=== PATIENT | female | born 1955 | race Caucasian/White ===

== ENCOUNTER → 2020-02-04 | Outpatient (CLI) | payer MEDICARE, MEDICAID ==
--- NOTE | 2020-02-04 16:19 | RADIOLOGY REPORT (SQ) ---
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 NUMBER OF VIEWS: Two views. TECHNIQUE: AP pelvis and additional frog-leg view of the right hip. LIMITATIONS: None. FINDINGS: MINERALIZATION: Normal. RIGHT HIP: No fracture or dislocation. No worrisome bone lesions. LEFT HIP: No fracture or dislocation. No worrisome bone lesions. PUBIS AND ISCHIUM: No fracture. PELVIS: No fracture. SACRUM: No fracture or dislocation. No worrisome bone lesions. LOWER LUMBAR SPINE: No fracture or dislocation. No worrisome bone lesions. No significant disc disea se. SOFT TISSUES: No findings. OTHER: No other significant finding. IMPRESSION: NEGATIVE STUDY OF THE RIGHT HIP. NO RADIOGRAPHIC EVIDENCE OF ACUTE INJURY. TECHNICAL DOCUMENTATION: JOB ID: [id number] 2010 [employer]- All Rights Reserved Reading location - IP/workstation name: [email or web address]
--- NOTE | 2020-02-04 16:20 | RADIOLOGY REPORT (SQ) ---
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 NUMBER OF VIEWS: Five views including obliques. TECHNIQUE: AP, lateral, oblique, and sacral radiographic images acquired of the lumbar spine. LIMITATIONS: None. FINDINGS: MINERALIZATION: Normal. SEGMENTATION: Normal. No transitional anatomy. ALIGNMENT: Normal. VERTEBRAE: Maintained height. No fracture or worrisome bone lesion. DISCS: There is mild disc narrowing at L3-4 and L4-5 POSTERIOR ELEMENTS: Pedicles and facets are intact. No pars defect or posterior arch defects. HARDWARE: None in the spine. PARASPINAL SOFT TISSUES: Normal. PELVIS: Intact as visualized. No fractures or worrisome bone lesions. SI joints intact. OTHER: No other significant finding. IMPRESSION: Mild degenerative disc changes. TECHNICAL DOCUMENTATION: JOB ID: [id number] 2010 [employer]- All Rights Reserved Reading location - IP/workstation name: [email or web address]
== END ==
LOC: RAD 14:49
PROVIDERS: ATTEND Family Medicine
DX: M25.551 Pain in right hip (principal); M54.31 Sciatica, right side
CPT/HCPCS: 72110

== ENCOUNTER 2020-06-16 08:03 | Inpatient (IN) | payer MEDICARE, MEDICAID ==
--- NOTE | 2020-06-16 11:41 | ER Document Report ---
ED Psych Disorder / Suicide <PRAVIN YUN - Last Filed: 06/16/20 16:57> - Related Data Home Medications: Ativan, Losartan, Tramadol, Phentermine <ANKUR QUINTANILLA - Last Filed: 06/16/20 18:08> - General Chief Complaint: Depression Stated Complaint: ANXIOUS Time Seen by Provider: 06/16/20 11:19 Notes: Patient is a 65-year-old female who comes emergency department for chief complaint of anxiety and depression. Her from lung cancer reportedly on 06/05/2020, patient states since that time she has "not been doing well". Sister at bedside states that she called EMS for her this morning after a phone call where the patient seemed groggy and confused. She states the patient told her that she felt like she "was not breathing quite right". Patient denies suicidal ideations but states she just wants to sleep and she just wants to feel right again. Sister states she is very worried about her and she does not seem to be doing well or taking care of herself. Patient lives with a roommate. Patient has a history of anxiety and depression, treated fo rmally with Prozac and currently with Ativan as needed. Patient states she took 3 mg of Ativan this morning because she felt like her 2 mg dose that she is allowed to take was not helping. Patient denies intentional overdose. She denies anything irregular about her other medication doses. Past medical history of hypertension and current smoking with "possible COPD". Patient denies fever/chills, chest pain, vomiting, injury. (ANKUR QUINTANILLA) - Related Data Allergies/Adverse Reactions: Penicillins Allergy (Intermediate, Verified 08/21/10 11:24) Hives Past Medical History - General Information source: Patient, Relative - Social History Smoking Status: Current Every Day Smoker Chew tobacco use (# tins/day): No Drug Abuse: None Lives with: Family Family History: Reviewed & Not Pertinent - Past Medical History Cardiac Medical History: Reports: Hx Hypertension Denies: Hx Coronary Artery Disease, Hx Heart Attack Pulmonary Medical History: Reports: Hx Bronchitis - pt states due to smoking Denies: Hx Asthma, Hx COPD, Hx Pneumonia Neurological Medical History: Denies: Hx Cerebrovascular Accident, Hx Seizures Musculoskeletal Medical History: Reports Hx Arthritis - limited rom with turning head to side and tilting back Past Surgical History: Denies: Hx Pacemaker <ANKUR QUINTANILLA - Last Filed: 06/16/20 18:08> Review of Systems - Review of Systems Constitutional: See HPI EENT: No symptoms reported Cardiovascular: No symptoms reported Respiratory: See HPI Gastrointestinal: No symptoms reported Genitourinary: No symptoms reported Female Genitourinary: No symptoms reported Musculoskeletal: No symptoms reported Skin: No symptoms reported Hematologic/Lymphatic: No symptoms reported Neurological/Psychological: See HPI <JOHNNYISMAEL FUNGAN - Last Filed: 06/16/20 18:08> Physical Exam <ISMAEL QUINTANILLAAN - Last Filed: 06/16/20 18:08> - Vital signs Vitals: Temp Pulse Resp BP Pulse Ox 97.9 F 77 28 H 145/81 H 91 L 06/16/20 08:14 06/16/20 08:14 06/16/20 08:14 06/16/20 08:14 06/16/20 08:14 - Notes Notes: GENERAL: Alert, interacts well. No acute distress. HEAD: Normocephalic, atraumatic. EYES: Pupils equal, round, and reactive to light. Extraocular movements intact. ENT: Oral mucosa moist, tongue midline. Oropharynx unremarkable. Airway patent. NECK: Full range of motion. Supple. Trachea midline. No lymphadenopathy. LUNGS: Decreased breath sounds but no overt rales or rhonchi. Mild tachypnea HEART: Regular rate and rhythm. No murmur ABDOMEN: Soft, non-tender. Non-distended. EXTREMITIES: Bilateral lower extremity swelling with edema slightly worse on the left. Normal distal neurovascular exam BACK: no cervical, thoracic, lumbar midline tenderness. No saddle anesthesia, normal distal neurovascular exam. Moves all extremities in full range of motion. NEUROLOGICAL: Alert and oriented x3. Normal speech. Cranial nerves II through XII grossly intact. Strength 5/5 in all extremities. PSYCH: Patient tearful, makes poor eye contact, depressed mood SKIN: Warm, dry, normal turgor. No rashes or lesions noted. (ANKUR QUINTANILLA) Course - Laboratory Results Result Diagrams: 06/16/20 12:20 06/16/20 12:20 <PRAVIN YUN - Last Filed: 06/16/20 16:57> - Laboratory Results Result Diagrams: 06/16/20 12:20 06/16/20 12:20 Critical Laboratory Results Reviewed: No Critical Results - Radiology Results Critical Radiology Results Reviewed: No Critical Results <ANKUR QUINTANILLA - Last Filed: 06/16/20 18:08> - Re-evaluation Re-evalutation: Patient sleeping, when I aroused her she burst into tears and was noted to be consistently crying during her evaluation. Patient appears to be having a s evere grief reaction. Lungs not overtly concerning but patient does have some tachypnea, physical exam is unremarkable otherwise, oxygen saturation borderline at 91% initially she will be placed on pulse oximetry and work-up is pending for hopefully medical clearance. Chest x-ray shows pleural effusion, possible infiltrate, very notable cardiomegaly. CBC nonspecific, chemistry nonspecific with elevated LFTs. BNP is significantly elevated at greater than 12,000. Patient does not have history of CHF reportedly, is not on a diuretic. Troponin indeterminate. I discussed with patient, patient back to have a CAT scan, states that her had 4 total abnormal x-rays before someone finally did a CAT scan diagnosed cancer. She is a current smoker. Tachypnea and abnormal chest x-ray will be evaluated with a CTA. CT most consistent with pulmonary vascular congestion, no acute findings noted otherwise. Patient briefly had an episode where she became slightly diaphoretic and had notable labored breathing with respiratory distress, ordered BiPAP, given nitroglycerin and Lasix, patient then significantly improved. Patient not tolerating BiPAP, requesting just nasal cannula, she was reevaluated while using just this and was significantly improved. Discussed with patient and family, will discuss with hospitalist for admission for hypoxia, dyspnea, new onset congestive heart failure. They state understanding and agreement. Discussed with hospitalist, patient accepted full admission. 06/16/20 18:00 Psychiatry evaluated patient, recommended adding BuSpar 7.5 mg twice a day and discontinuing lorazepam, they requested that I place the order for BuSpar and this was performed. (ANKUR QUINTANILLA) - Vital Signs Vital signs: Temp Pulse Resp BP Pulse Ox 97.9 F 77 18 140/80 H 98 06/16/20 08:14 06/16/20 08:14 06/16/20 13:01 06/16/20 13:01 06/16/20 13:01 - Laboratory Results Laboratory Results Interpreted: 06/16/20 06/16/20 06/16/20 12:05 12:20 12:20 RDW 14.2 H Seg Neutrophils % 80.5 H Glucose 112 H AST 118 H ALT 104 H Alkaline Phosphatase 138 H NT-Pro-B Natriuret Pep Albumin 3.4 L Urine Protein 100 H Urine Blood SMALL H Urine Nitrite POSITIVE H Salicylates < 1.0 L Acetaminophen < 10 L 06/16/20 12:20 RDW Seg Neutrophils % Glucose AST ALT Alkaline Phosphatase NT-Pro-B Natriuret Pep 36912 H Albumin Urine Protein Urine Blood Urine Nitrite Salicylates Acetaminophen Discharge <PRAVIN YUN - Last Filed: 06/16/20 16:57> - Discharge Admitting Provider: Pedro Unit Admitted: Telemetry <ANKUR QUINTANILLA - Last Filed: 06/16/20 18:08> - Discharge Clinical Impression: Grief reaction, Hypoxia CHF (congestive heart failure) Qualifiers: Heart failure type: unspecified Heart failure chronicity: acute Qualified Code(s): I50.9 - Heart failure, unspecified Condition: Stable Disposition: HOME, SELF-CARE
--- NOTE | 2020-06-16 12:20 | RADIOLOGY REPORT (SQ) ---
EXAM DESCRIPTION: CHEST SINGLE VIEW IMAGES COMPLETED DATE/TIME: 06/16/2020 12:11 pm REASON FOR STUDY: shortness of breath COMPARISON: 08/21/2010 EXAM PARAMETERS: NUMBER OF VIEWS: One view. TECHNIQUE: Single frontal radiographic view of the chest acquired. RADIATION DOSE: NA LIMITATIONS: None. FINDINGS: LUNGS AND PLEURA: Right pleural effusion. Underlying atelectasis or pneumonia cannot be e xcluded. MEDIASTINUM AND HILAR STRUCTURES: No masses. Contour normal. HEART AND VASCULAR STRUCTURES: There is cardiomegaly which is new from prior study. BONES: No acute findings. HARDWARE: None in the chest. OTHER: No other significant finding. IMPRESSION: Marked cardiomegaly new from prior study. No overt failure. Right basilar airspace dis ease along with right pleural effusion. TECHNICAL DOCUMENTATION: JOB ID: [id number] 2010 [employer]- All Rights Reserved Reading location - IP/workstation name: [email or web address]
[2020-06-16 12:31] LABS: APPEARANCE,URINE SLIGHTLY-CLOUDY; BILIRUBIN,URINE NEGATIVE (NEGATIVE); COLOR,URINE YELLOW; GLUCOSE, URINE NEGATIVE (NEGATIVE); KETONES,URINE NEGATIVE (NEGATIVE); LEUKOCYTE ESTERASE,URINE NEGATIVE (NEGATIVE); NITRITE,URINE POSITIVE (NEGATIVE); PROTEIN,URINE 100 mg/dL (NEGATIVE); UROBILINOGEN,URINE NEGATIVE mg/dL (<2.0)
[2020-06-16 12:48] LABS: URINE BARBITURATES SCREEN NEGATIVE; URINE COCAINE SCREEN NEGATIVE; URINE MARIJUANA (THC) SCREEN NEGATIVE; URINE METHADONE SCREEN NEGATIVE; URINE PHENCYCLIDINE SCREEN NEGATIVE
[2020-06-16 12:49] LABS: URINE AMPHETAMINES SCREEN UNCONFIRMED POSITIVE; URINE BENZODIAZEPINES SCREEN UNCONFIRMED POSITIVE
[2020-06-16 12:52] LABS: ABSOLUTE BASOPHILS # (AUTO) 0.1 10^3/uL (0.0-0.2); ABSOLUTE LYMPHOCYTES (AUTO) 1.3 10^3/uL (0.5-4.7); ABSOLUTE MONOCYTES (AUTO) 0.5 10^3/uL (0.1-1.4); BASOPHILS % (AUTO) 0.6 % (0-2); EOSINOPHILS % (AUTO) 0.1 % (0-6); HEMATOCRIT 36.6 % (36.0-47.0); HEMOGLOBIN 12.6 g/dL (12.0-15.5); LYMPHOCYTES % (AUTO) 13.4 % (13-45); MEAN CORPUSCULAR HEMOGLOBIN 29.5 pg (27.0-33.4); MEAN CORPUSCULAR HGB CONC 34.5 g/dL (32.0-36.0); MEAN CORPUSCULAR VOLUME 86 fl (80-97); MONOCYTES % (AUTO) 5.4 % (3-13); PLATELET COUNT 221 10^3/uL (150-450); RED BLOOD COUNT 4.28 10^6/uL (3.72-5.28); RED CELL DISTRIBUTION WIDTH 14.2 % (11.5-14.0); SEGMENTED NEUTROPHILS % (AUTO) 80.5 % (42-78); TOTAL CELLS COUNTED % (AUTO) 100 %; WHITE BLOOD COUNT 9.9 10^3/uL (4.0-10.5)
[2020-06-16 13:11] LABS: ALBUMIN 3.4 g/dL (3.5-5.0); ALKALINE PHOSPHATASE 138 U/L (38-126); ANION GAP 5 (5-19); ASPARTATE AMINO TRANSFERASE 118 U/L (14-36); BILIRUBIN,DIRECT 0.3 mg/dL (0.0-0.4); BILIRUBIN,TOTAL 0.8 mg/dL (0.2-1.3); BLOOD UREA NITROGEN 14 mg/dL (7-20); CALCIUM 9.2 mg/dL (8.4-10.2); CARBON DIOXIDE 27 mmol/L (22-30); CHLORIDE 106 mmol/L (98-107); GLUCOSE 112 mg/dL (75-110); POTASSIUM 4.5 mmol/L (3.6-5.0); TOTAL PROTEIN 6.4 g/dL (6.3-8.2)
[2020-06-16 13:13] LABS: ACETAMINOPHEN < 10 ug/mL (10-30); ALCOHOL < 10 mg/dL (NONE DETECTED); SALICYLATE < 1.0 mg/dL (2.0-20.0)
--- NOTE | 2020-06-16 14:30 | RADIOLOGY REPORT (SQ) ---
EXAM DESCRIPTION: CTA CHEST IMAGES COMPLETED DATE/TIME: 06/16/2020 2:20 pm REASON FOR STUDY: smoker, ?CA, effusion, hypoxia COMPARISON: None. TECHNIQUE: CT scan of the chest performed using helical scanning technique with dynamic intravenous contrast injection. Images reviewed with lung, soft tissue and bone windows. Reconstructed coronal and sagittal MPR images reviewed. Additional 3 dimensional post-processing performed to develop Maximal Intensity Projection images ([place] P). All images stored on PACS. All CT scanners at this facility use dose modulation, iterative reconstruction, and/or weight based d osing when appropriate to reduce radiation dose to as low as reasonably achievable (ALARA). [facility]: Dose Right [facility]: CareDose [facility]: Dose Right [facility]: Teradose 4D [facility]: ReviverMx CONTRAST TYPE AND DOSE: contrast/concentration: Isovue 350.00 mmol/ml; Total Contrast Delivered: 130 .0 ml; Total Saline Delivered: 108.3 ml Contrast bolus optimized for the pulmonary arteries. Not diagnostic for the aorta. RENAL FUNCTION: BUN 14, creatinine 0.84 RADIATION DOSE: CT Rad equipment meets quality standard of care and radiation dose reduction techniq ues were employed. CTDIvol: 15.5 - 54.9 mGy. DLP: 679 mGy-cm. . LIMITATIONS: None. FINDINGS: LUNGS AND PLEURA: There are small bilateral pleural effusions. There is prominence of int erstitial markings bilaterally. There is basilar atelectasis. There is atelectasis in the lingula. No focal consolidation. AORTA AND GREAT VESSELS: No aneurysm. Contrast bolus not optimized for the aorta. HEART: No pericardial effusion. Cardiomegaly. PULMONARY ARTERIES: No emboli visualized in the main pulmonary arteries or the segmental branches. HILAR AND MEDIASTINAL STRUCTURES: Prominent mediastinal hilar nodes most likely reactive. HARDWARE: None in the chest. UPPER ABDOMEN: No significant findings. Limited exam. THYROID AND OTHER SOFT TISSUES: No masses. No adenopathy. BONES: No acute or significant finding. 3D MIPS: Confirm above findings. OTHER: No other significant finding. IMPRESSION: Small bilateral pleural effusions with prominent interstitial markings. There is bibasi lar atelectasis and lingular atelectasis. No focal consolidation. Findings may represent vascular c ongestion. No pulmonary emboli. COMMENT: Quality ID # [id number]: Final reports with documentation of one or more dose reduction techniques (e.g., Automated exposure control, adjustment of the mA and/or kV according to patient size, use of iterative reconstruction technique) TECHNICAL DOCUMENTATION: JOB ID: [id number] 2010 [employer]- All Rights Reserved Reading location - IP/workstation name: [email or web address]
--- NOTE | 2020-06-16 14:51 | EKG REPORT ---
SEVERITY:- ABNORMAL ECG - SINUS TACHYCARDIA VENTRICULAR PREMATURE COMPLEX LEFT ATRIAL ABNORMALITY LEFT VENTRICULAR HYPERTROPHY : Confirmed by: Angela Ch 16-Jun-2020 14:49:49
[2020-06-16] MEDS ORDERED: NITROGLYCERIN 2% OINTMENT 1 GM PACKET TP ONE (15:18)
[2020-06-16] MEDS ORDERED: LORAZEPAM INJ 2 MG/1 ML VIAL IV ONE (15:18)
[2020-06-16] MEDS ORDERED: FUROSEMIDE INJ/PF 40 MG/4 ML SDV IV ONE (15:18)
[2020-06-16] MEDS ORDERED: CEFTRIAXONE 1 GM/D5W RTU 1 GM/50 ML RTUPB IV ONE (15:19)
[2020-06-16] MEDS ORDERED: IPRATROPIUM/ALBUTEROL 0.5-2.5 MG/3 ML AMPUL NEB PRN (17:11)
[2020-06-16] MEDS ORDERED: ACETAMINOPHEN 325 MG TABLET PO PRN (17:11)
[2020-06-16] MEDS ORDERED: ONDANSETRON HCL INJ/PF 4 MG/2 ML SDV IV PRN (17:11)
[2020-06-16] MEDS ORDERED: ASPIRIN 325 MG TABLET PO ONE ×2 (17:45→21:00)
[2020-06-16] MEDS ORDERED: ATORVASTATIN CALCIUM 80 MG TABLET PO ONE ×2 (17:45→21:00)
[2020-06-16] MEDS ORDERED: NITROGLYCERIN 0.4 MG/TAB 25 TAB/BOTTLE SL PRN (18:38)
--- NOTE | 2020-06-16 18:43 | PDOC H&P ---
History of Present Illness Admission Date/PCP: 06/16/20 15:56 Patient complains of: SOB History of Present Illness: RAFFI MATTHEWS is a 65 year old female, PMH of HTN, current smoker, who came in the ED today due to SOB. SOB started at around 3 am today with associated midsternal chest pain/heaviness that lasted for 1 hr and went away on its own. She called her sister and according to the sister she sounded groggy and confused. She has also noted increased leg swelling and admits that she has not been sleeping at all since her last June 05, 2020. She is a current everyday smoker 4 cig/day for 35 years. She denied any prior h istory of CHF or previous MO. She has a history of depression and her sister is concerned that she might be depressed due to the recent passing of her . In the ED, BP 140/85, heart rate 116, respiratory rate 18, O2 sat 98% on room air. CBC was unremarkable. CMP showed transaminitis. Initial troponin 0.079 with an EKG showing sinus tachycardia, no ST elevation, left ventricular hypertrophy. BNP was 12,000. Chest x-ray showed cardiomegaly new onset, small bilateral pleural effusion. CT angio of the chest was negative for pulmonary embolism. She was given 1 dose of Lasix and hospitalist service was called for further evaluation and management. Past Medical History Cardiac Medical History: Reports: Hypertension Denies: Coronary Artery Disease, Myocardial Infarction Pulmonary Medical History: Reports: Bronchitis - pt states due to smoking Denies: Asthma, Chronic Obstructive Pulmonary Disease (COPD), Pneumonia EENT Medical History: Reports: None Neurological Medical History: Reports: None Denies: Seizures Endocrine Medical History: Reports: None Renal/ Medical History: Reports: None Malignancy Medical History: Reports: None GI Medical History: Reports: None Musculoskeltal Medical History: Reports: Arthritis - limited rom with turning head to side and tilting back Skin Medical History: Reports: None Psychiatric Medical History: Reports: None Hematology: Denies: Anemia Past Surgical History Past Surgical History: Reports: Cholecystectomy Denies: Pacemaker Social History Information Source: Patient Smoking Status: Current Every Day Smoker Frequency of Alcohol Use: Rare Hx Recreational Drug Use: No - Advance Directive Resuscitation Status: Full Code Family History Family History: Reviewed & Not Pertinent Parental Family History Reviewed: Yes Children Family History Reviewed: Yes Sibling(s) Family History Reviewed.: Yes Medication/Allergy Allergies/Adverse Reactions: Penicillins Allergy (Intermediate, Verified 08/21/10 11:24) Hives Review of Systems Constitutional: PRESENT: fatigue. ABSENT: fever(s), weakness Eyes: ABSENT: visual disturbances Ears: ABSENT: hearing changes Cardiovascular: PRESENT: chest pain, edema. ABSENT: dyspnea on exertion, orthropnea, palpitations Respiratory: PRESENT: dyspnea. ABSENT: cough, hemoptysis Neurological: ABSENT: abnormal gait Physical Exam Vital Signs: Temp Pulse Resp BP Pulse Ox 97.9 F 77 18 140/80 H 98 06/16/20 08:14 06/16/20 08:14 06/16/20 13:01 06/16/20 13:01 06/16/20 13:01 Intake & Output 06/15/20 06/16/20 06/17/20 06:59 06:59 06:59 Intake Total 50 Balance 50 Weight 106 kg General appearance: PRESENT: no acute distress, cooperative Head exam: PRESENT: atraumatic Eye exam: PRESENT: EOMI, PERRLA Mouth exam: PRESENT: moist Neck exam: PRESENT: full ROM Respiratory exam: PRESENT: clear to auscultation sveta, symmetrical, unlabored Cardiovascular exam: PRESENT: RRR, +S1, +S2 Pulses: PRESENT: +2 pedal pulses bilateral GI/Abdominal exam: PRESENT: normal bowel sounds, soft. ABSENT: rebound, tenderness Extremities exam: PRESENT: full ROM Musculoskeletal exam: PRESENT: full ROM Neurological exam: PRESENT: alert, awake, oriented to person, oriented to place, oriented to time, oriented to situation Psychiatric exam: PRESENT: depressed Skin exam: PRESENT: normal color Results Laboratory Results: 06/16/20 12:20 06/16/20 12:20 06/16/20 06/16/20 06/16/20 12:05 12:20 12:20 WBC 9.9 RBC 4.28 Hgb 12.6 Hct 36.6 MCV 86 MCH 29.5 MCHC 34.5 RDW 14.2 H Plt Count 221 Seg Neutrophils % 80.5 H Sodium 138.1 Potassium 4.5 Chloride 106 Carbon Dioxide 27 Anion Gap 5 BUN 14 Creatinine 0.84 Est GFR ( Amer) > 60 Glucose 112 H Calcium 9.2 Total Bilirubin 0.8 AST 118 H Alkaline Phosphatase 138 H Total Protein 6.4 Albumin 3.4 L Urine Color YELLOW Urine Appearance SLIGHTLY-CLOUDY Urine pH 5.0 Ur Specific [place] 1.020 Urine Protein 100 H Urine Glucose (UA) NEGATIVE Urine Ketones NEGATIVE Urine Blood SMALL H Urine Nitrite POSITIVE H Ur Leukocyte Esterase NEGATIVE Urine WBC (Auto) 4 Urine RBC (Auto) 1 06/16/20 06/16/20 12:20 12:20 Troponin I 0.079 NT-Pro-B Natriuret Pep 39239 H Impressions: Chest X-Ray 06/16/20 11:37 IMPRESSION: Marked cardiomegaly new from prior study. No overt failure. Right basilar airspace disease along with right pleural effusion. Chest/Abdomen CTA 06/16/20 12:32 IMPRESSION: Small bilateral pleural effusions with prominent interstitial markings. There is bibasilar atelectasis and lingular atelectasis. No focal consolidation. Findings may represent vascular congestion. No pulmonary emboli. Assessment and Plan - Diagnosis (1) New onset of congestive heart failure Is this a current diagnosis for this admission?: Yes Plan: - hx of HTN and current smoker but otherwise no prior hx of CHF, previous MO - recently - +ve grade 1 pitting edema - CXR cardiomegaly - EKG sinus tachy, LVH, no ST elevation - troponin 0.079 - BNP 12,200 - +ve amphetamine on Utox. patient denied using - DDx; CHF 2/2 ACS or Stress cardiomyopathy or 2/2 amphetamine use - Stat echo ordered - lasix 40 Iv BID - Started on ARB, aspirin and statin - beta sean tomorrow - will eventually need ischemic work up - cardio consult - daily weights - strict IO (2) NSTEMI (non-ST elevated myocardial infarction) Is this a current diagnosis for this admission?: Yes Plan: - complained of sudden onset SOB with chest pain midsternal lasted 1 hr spontaneously resolved - hx of HTN, Current everyday smoker, no prior MO - trop 0.079 - EKG sinus tachy, LVH, no ST elevation - BRANDON score 3 points - given aspirin 325, then 81 mg daily - started on statin and ARB - started on therapeutic lovenox - PRN SL NTG for chest pain - will trend troponin - echo pending - possible cardiac cath (3) HTN (hypertension) Qualifiers: Hypertension type: essential hypertension Qualified Code(s): I10 - Essential (primary) hypertension Is this a current diagnosis for this admission?: Yes Plan: - On losartan but poorly compliant - losartan resumed (4) Chest pain Qualifiers: Chest pain type: precordial pain Qualified Code(s): R07.2 - Precordial pain Is this a current diagnosis for this admission?: Yes Plan: - likely ACS or stress cardiomyopathy - CTA negative for Pulm embolism - management as above (5) Grief reaction Is this a current diagnosis for this admission?: Yes Plan: - recently from Lung Ca - is tearful on exam - denies SI - psych consulted from the ED - Time Time Spent with patient: 25-34 minutes Medications reviewed and adjusted accordingly: Yes Anticipated Discharge Disposition: Home with Home Health Anticipated Discharge Timeframe: tbd
[2020-06-16] MEDS ORDERED: ASPIRIN 325 MG TABLET ONE (20:05)
[2020-06-16] MEDS: LOSARTAN POTASSIUM 50 MG TABLET PO SCH (20:30)
--- NOTE | 2020-06-16 20:42 | PSYCHOLOGICAL NOTE ---
Psych Note - Psych Note Date seen by psych provider: 06/16/20 Time seen by psych provider: 13:53 Psych Note: Reason for Consult: anxiety Consent provided: sister, at bedside, later during check in [id number] Patient is a 65 year old female who was admitted to the ED for medical concerns and anxiety. She denies suicidal ideations, plan, and intent. She reports dealing with anxiety which has gotten worse in the past week. Patient reports grief due to her of almost 18 years passing away on 06.05.2020 due to cancer. She denies inpatient hospitalizations and suicide attempts. She reports she is prescribed Lorazepam, but does not like it and does not feel it works. She is prescribed medications with Dr. Pierre at [facility]. She states she has seasonal depression and has been on Prozac, Wellbutrin, and Zoloft in the past. Patient lives with a roommate and has her sister in the area. She denies substance use issues. She states she has had an increase in anxiety and trouble sleeping since her . Patient was alert and oriented to self, person, place, time and situation. Mood was sad with congruent affect. She denies current suicidal and homicidal ideation, plan, and intent. Patient did not appear to be responding to internal stimuli as evidenced by fair eye contact and answering questions appropriately when addressed. Thought processes are linear and organized. Conversational speech was within normal limits for rate, tone and prosody. Intellectual abilities are estimated to be average. Insight, judgment and impulse control were fair as evidenced by coming to the ED and asking for help. Patient engages appropriately. She demonstrates future forward goal oriented thinking as she talks about being interested in therapy and asking questions about providers in the area. Clinical Presentation: anxiety and grief; depression IVC Criteria per [place] GS 122C Dangerous to others Within the relevant past the individual No has inflicted or attempted to inflict or threatened to inflict serious bodily harm on another AND No that there is a reasonable probability that this conduct will be repeated. OR No has acted in such a way as to create a substantial risk of serious bodily harm to another AND No that there is a reasonable probability that this conduct will be repeated. OR No has engaged in extreme destruction of property AND NO that there is a reasonable probability that this conduct will be repeated. Previous episodes of dangerousness to others, when applicable, may be considered when determining reasonable probability of future dangerous conduct. Clear, cogent, and convincing evidence that an individual has committed a homicide in the relevant past is prima facie evidence of dangerousness to others. Dangerous to self Within the relevant past the individual has done any of the following: acted in such a way as to show ALL of the following: No The individual would be unable without care, supervision, and the continued assistance of others not otherwise available, to exercise self- control, judgment, and discretion in the conduct of the individual's daily responsibilities and social relations or to satisfy the individual's need for nourishment, personal or medical care, custodial, or self-protection and safety. AND No There is a reasonable probability of the individual suffering serious physical debilitation within the near future unless adequate treatment is given. A showing of behavior that is grossly irrational, of actions that the individual is unable to control, of behavior that is grossly inappropriate to the situation, or of other evidence of severely impaired insight and judgment shall create a prima facie inference that the individual is unable to care for himself or herself. OR No has attempted suicide or threatened suicide AND No that there is a reasonable probability of suicide unless adequate treatment is given OR No has mutilated himself or herself or attempted to mutilate himself or herself AND No that there is a reasonable probability of serious self-mutilation unless adequate treatment is given. NOTE: Previous episodes of dangerousness to self, when applicable, may be considered when determining reasonable probability of physical debilitation, suicide, or self-mutilation. Medication recommendations per [facility] contracted psychiatrist, Dr. Sarah PLASCENCIA, are as follows: discontinue Lorazepam; start Buspar 7.5mg twice daily Impression\plan: Patient is cleared from psychiatric services. She was admitted to the ED for health concerns and anxiety. She does not meet criteria for IVC. She denies suicidal ideation, plan, and intent. She reports grief and anxiety related to her passing away on 06.05.2020, but does not express suicidal ideations. Patients sister came in the room prior to her being transferred to the floor (She is being admitted medically) and stated patients kids are in [place] and worried and may want her to move there with them. Sister reports she is going to be part of discharge plan of care and will be able to pick patient up. Sister notes her children want to come to [place] to see her and may also pick her up if they agree to take her to [place] with them. She states they will all be a part of her plan of care at discharge. Sister reports losing her significant other about 5 years ago and inquired about therapy for patient. Sister was going to look into options in the area, however is going to keep an open mind about patient possibly going to [place]. She was recommended to set up and appointment and cancel if a plan is set in place to move. Patient is recommended to follow up with outpatient provider and continue medications that were changed in the ED. She was given community resource sheet for outpatient providers and mobile crisis; [facility] and [facility]. She was recommended to call her provider, utilize mobile crisis, or return to the ED if her symptoms return or worsen. Patient is being admitted medically and if medical team feels behavioral health needs to meet again, please re-consult. She is cleared from psych at this time with medications recommendations made and resources provided. Dr. Dai was consulted to care management of this patient; attending physicians in agreement with recommendations and disposition.
[2020-06-16] MEDS: FUROSEMIDE INJ/PF 40 MG/4 ML SDV IV SCH (21:06)
[2020-06-16] MEDS: ENOXAPARIN SODIUM INJ 100 MG/1 ML DISP.SYRIN SUBCUT SCH (21:11)
[2020-06-17 05:16] LABS: ABSOLUTE BASOPHILS # (AUTO) 0.1 10^3/uL (0.0-0.2); ABSOLUTE EOSINOPHILS # (AUTO) 0.2 10^3/uL (0.0-0.6); ABSOLUTE LYMPHOCYTES (AUTO) 1.5 10^3/uL (0.5-4.7); ABSOLUTE MONOCYTES (AUTO) 1.1 10^3/uL (0.1-1.4); ABSOLUTE NEUT (AUTO) 7.8 10^3/uL (1.7-8.2); BASOPHILS % (AUTO) 0.5 % (0-2); EOSINOPHILS % (AUTO) 1.6 % (0-6); HEMATOCRIT 35.8 % (36.0-47.0); HEMOGLOBIN 12.2 g/dL (12.0-15.5); LYMPHOCYTES % (AUTO) 14.2 % (13-45); MEAN CORPUSCULAR HEMOGLOBIN 28.8 pg (27.0-33.4); MEAN CORPUSCULAR HGB CONC 34.1 g/dL (32.0-36.0); MEAN CORPUSCULAR VOLUME 84 fl (80-97); MONOCYTES % (AUTO) 10.2 % (3-13); PLATELET COUNT 209 10^3/uL (150-450); RED BLOOD COUNT 4.24 10^6/uL (3.72-5.28); RED CELL DISTRIBUTION WIDTH 14.1 % (11.5-14.0); SEGMENTED NEUTROPHILS % (AUTO) 73.5 % (42-78); TOTAL CELLS COUNTED % (AUTO) 100 %; WHITE BLOOD COUNT 10.7 10^3/uL (4.0-10.5)
[2020-06-17 05:34] LABS: ALBUMIN 3.2 g/dL (3.5-5.0); ALKALINE PHOSPHATASE 123 U/L (38-126); ASPARTATE AMINO TRANSFERASE 61 U/L (14-36); BILIRUBIN,DIRECT 0.3 mg/dL (0.0-0.4); BILIRUBIN,TOTAL 1.2 mg/dL (0.2-1.3); BLOOD UREA NITROGEN 12 mg/dL (7-20); CALCIUM 9.3 mg/dL (8.4-10.2); CHOLESTEROL 193.63 mg/dL (0-200); GLUCOSE 109 mg/dL (75-110); TOTAL PROTEIN 6.1 g/dL (6.3-8.2); TRIGLYCERIDES 105 mg/dL (<150)
[2020-06-17 05:39] LABS: CARBON DIOXIDE 29 mmol/L (22-30); CHLORIDE 104 mmol/L (98-107)
[2020-06-17 05:45] LABS: DIRECT LDL 128 mg/dL (<100)
[2020-06-17 05:49] LABS: POTASSIUM 3.5 mmol/L (3.6-5.0)
[2020-06-17 05:54] LABS: ANION GAP 4 (5-19)
[2020-06-17] MEDS: PANTOPRAZOLE SODIUM 20 MG TABLET.DR PO SCH (06:20)
--- NOTE | 2020-06-17 09:21 | XCELERA REPORT ---
[address] [address] Transthoracic Echocardiogram Report Name: RAFFI MATTHEWS Age: 65 yrs Gender: Female : 1955 Patient Status: Inpatient Patient Location: [address] [place], [place] [address] Study Date: 06/16/2020 06:40 PM History: CHF NSTEMI Height: 68 in Weight: 233 lb BSA: 2.2 m2 Procedure: A complete two-dimensional transthoracic echocardiogram was performed (2D, M-mode, spectral and color flow Doppler). The study was technically difficult with many images being suboptimal in quality. Reason For Study: cardiomyopathy Previous Evaluation: No previous studies were available. History: CHF NSTEMI. Ordering Physician: JEY VENCES Performed By: Shweta Marquez Interpretation Summary Left ventricular systolic function is moderately reduced. The Ejection Fraction estimate is 30-35% The right ventricle is normal in size and function. There is a moderate amount of mitral regurgitation There is no aortic valve stenosis There is a trace or physiologic amount of tricuspid regurgitation Small pericardial effusion. There are no echocardiographic or Doppler indications for cardiac tamponade MMode/2D Measurements & Calculations RVDd: 2.2 cm LVIDd: 6.6 cm FS: 17.2 % Ao root diam: 2.5 cm IVSd: 1.0 cm LVIDs: 5.5 cm EDV(Teich): 227.3 ml Ao root area: 4.9 cm2 LVPWd: 1.1 cm ESV(Teich): 147.8 ml EF(Teich): 35.0 % Doppler Measurements & Calculations MV E max melani: MV dec slope: Ao V2 max: LV V1 max P.8 cm/sec 411.6 cm/sec2 131.0 cm/sec 4.1 mmHg MV A max melani: MV dec time: 0.19 secAo max PG: LV V1 max: 106.9 cm/sec 6.9 mmHg 101.1 cm/sec MV E/A: 0.74 PA V2 max: TR max melani: 92.7 cm/sec 315.0 cm/sec PA max P.4 mmHg TR max P.7 mmHg Left Ventricle The left ventricle is mildly to moderately dilated. There is moderate concentric left ventricular hypertrophy. Left ventricular systolic function is moderately reduced. The Ejection Fraction estimate is 30-35%. Doppler measurements suggest impaired left ventricular relaxation, which is associated with grade I/IV or mild diastolic dysfunction. Right Ventricle The right ventricle is normal in size and function. Atria The right atrium is mildly dilated. The left atrium is mildly dilated. The interatrial septum is intact with no evidence for an atrial septal defect. There is no Doppler evidence for an interatrial shunt. Mitral Valve The mitral valve is grossly normal. There is no mitral valve stenosis. There is a moderate amount of mitral regurgitation. The mitral regurgitant jet is eccentrically directed. Aortic Valve The aortic valve is not well visualized secondary to technical limitations. The aortic valve opens well. There is no aortic valve stenosis. No aortic regurgitation is present. Tricuspid Valve The tricuspid valve is normal in structure and function. There is no tricuspid stenosis. There is a trace or physiologic amount of tricuspid regurgitation. Tricuspid regurgitation jet envelope not well defined to measure RV systolic pressure accurately. Pulmonic Valve The pulmonic valve is not well seen, but is grossly normal. The pulmonic valve is not well visualized. Great Vessels The aortic root is normal size. The inferior vena cava appeared normal and decreased > 50% with respiration (RAP 5-10 mmHg). Effusions Small pericardial effusion. There are no echocardiographic or Doppler indications for cardiac tamponade. : JEY VENCES Anil
[2020-06-17] MEDS: BUSPIRONE HCL 10 MG TABLET PO SCH ×2 (09:54→18:28)
[2020-06-17] MEDS: LOSARTAN POTASSIUM 50 MG TABLET PO SCH (09:55)
[2020-06-17] MEDS: FUROSEMIDE INJ/PF 40 MG/4 ML SDV IV SCH ×2 (09:56→22:41)
[2020-06-17] MEDS: ASPIRIN 81 MG TABLET, CHEWABLE PO SCH (09:57)
[2020-06-17] MEDS: ENOXAPARIN SODIUM INJ 100 MG/1 ML DISP.SYRIN SUBCUT SCH ×2 (09:58→22:44)
[2020-06-17] MEDS ORDERED: ENOXAPARIN SODIUM INJ 40 MG/0.4 ML DISP.SYRIN SUBCUT SCH (10:00)
[2020-06-17] MEDS: CARVEDILOL 3.125 MG TABLET PO SCH ×2 (11:52→22:44)
--- NOTE | 2020-06-17 16:14 | PDOC CONSULTATION ---
Consultation Consult Date: 06/17/20 Attending physician:: JEY VENCES Provider Consulted: GONZÁLEZ BOCANEGRA Consult reason:: Congestive heart failure History of Present Illness Admission Date/PCP: 06/16/20 15:56 [employer] MD Patient complains of: Dyspnea, chest pain History of Present Illness: RAFFI MATTHEWS is a 65 year old female 65-year-old lady with the following active problems 1. Systemic hypertension 2. Nicotine dependence-cigarettes 3. Dyslipidemia Patient was admitted to the medical service of the hospital after she presented with complaints of dyspnea. Apparently she also had some chest heaviness which is subsided since admission to the hospital. Patient had recent significant stressor with loss of on May 16, 2020. Multiple forms of imaging since admission to the hospital demonstrated ca rdiomegaly. Her presentation which also included edema raised the concern of an underlying congestive heart failure. She was tachycardic at presentation as well. Patient reports cigarette smoking with increased quantities of cigarettes been smoking earlier over 35 years. But lately has been smoking only about 4 cigarettes/day. No familial illnesses reported. Past Medical History Cardiac Medical History: Reports: Hypertension Denies: Coronary Artery Disease, Myocardial Infarction Pulmonary Medical History: Reports: Bronchitis - pt states due to smoking Denies: Asthma, Chronic Obstructive Pulmonary Disease (COPD), Pneumonia EENT Medical History: Reports: None Neurological Medical History: Reports: None Denies: Seizures Endocrine Medical History: Reports: None Renal/ Medical History: Reports: None Malignancy Medical History: Reports: None GI Medical History: Reports: None Musculoskeltal Medical History: Reports: Arthritis - limited rom with turning head to side and tilting back Skin Medical History: Reports: None Psychiatric Medical History: Reports: None Denies: Depression Hematology: Denies: Anemia Past Surgical History Past Surgical History: Reports: Cholecystectomy Denies: Pacemaker Social History Lives with: Family Smoking Status: Current Every Day Smoker Frequency of Alcohol Use: Rare Hx Recreational Drug Use: No Hx Prescription Drug Abuse: No - Advance Directive Resuscitation Status: Full Code Family History Family History: Reviewed & Not Pertinent Parental Family History Reviewed: Yes - No familial illnesses reported. Children Family History Reviewed: NA Sibling(s) Family History Reviewed.: NA Medication/Allergy Home Medications: Lorazepam [Ativan] 1 mg PO TID 06/16/20 Losartan Potassium 100 mg PO DAILY 06/16/20 Phentermine HCl [Adipex-P] 37.5 mg PO DAILY 06/16/20 Tramadol HCl [Ultram 50 mg Tablet] 50 mg PO DAILY 06/16/20 Tramadol HCl [Ultram 50 mg Tablet] 100 mg PO BID 06/16/20 Allergies/Adverse Reactions: Penicillins Allergy (Intermediate, Verified 08/21/10 11:24) Hives Review of Systems Constitutional: PRESENT: as per HPI Eyes: PRESENT: as per HPI Cardiovascular: PRESENT: chest pain, dyspnea on exertion, edema, orthropnea Respiratory: PRESENT: cough, dyspnea Neurological: PRESENT: as per HPI. ABSENT: abnormal gait, abnormal movements, abnormal speech, confusion, convulsions, dizziness, focal weakness, frequent falls, lack of coordination, memory loss, numbness, paresthesias, restless legs, syncope, tingling, tremor(s), vertigo, weakness, other Psychiatric: PRESENT: anxiety, depression. ABSENT: as per HPI, hallucinations, homidical ideation, suicidal ideation, other Physical Exam Vital Signs: Temp Pulse Resp BP Pulse Ox 98.6 F 99 14 94/61 L 95 06/17/20 11:39 06/17/20 13:47 06/17/20 13:47 06/17/20 11:39 06/17/20 13:47 Intake & Output 06/16/20 06/17/20 06/18/20 06:59 06:59 06:59 Intake Total 50 520 Balance 50 520 Weight 106 kg General appearance: PRESENT: no acute distress, cooperative, obese, well- developed, well-nourished Head exam: PRESENT: atraumatic, normocephalic Eye exam: PRESENT: conjunctiva pink, EOMI Mouth exam: PRESENT: moist Respiratory exam: PRESENT: crackles, decreased breath sounds, symmetrical, unlabored Cardiovascular exam: PRESENT: RRR, +S1, +S2, systolic murmur Pulses: PRESENT: normal radial pulses GI/Abdominal exam: PRESENT: soft Rectal exam: PRESENT: deferred Extremities exam: PRESENT: +1 edema Neurological exam: PRESENT: alert, awake, oriented to person, oriented to place, oriented to time, oriented to situation, CN II-XII grossly intact, normal gait Skin exam: PRESENT: dry, intact, normal color Results Laboratory Results: 06/17/20 04:48 06/17/20 04:48 01/10/0106/17/20 06/17/20 12:20 04:48 04:48 WBC 10.7 H RBC 4.24 Hgb 12.2 Hct 35.8 L MCV 84 MCH 28.8 MCHC 34.1 RDW 14.1 H Plt Count 209 Seg Neutrophils % 73.5 Sodium 136.5 L Potassium 3.5 L D Chloride 104 Carbon Dioxide 29 Anion Gap 4 L BUN 12 Creatinine 0.84 Est GFR ( Amer) > 60 Glucose 109 Calcium 9.3 Total Bilirubin 1.2 AST 61 H Alkaline Phosphatase 123 Total Protein 6.1 L Albumin 3.2 L Triglycerides 105 Cholesterol 193.63 LDL Cholesterol Direct 128 H VLDL Cholesterol 21.0 HDL Cholesterol 55 TSH 0.74 06/16/20 06/16/20 06/16/20 12:20 12:20 19:31 Troponin I 0.079 0.098 NT-Pro-B Natriuret Pep 34334 H 06/17/20 09:05 Troponin I 0.070 NT-Pro-B Natriuret Pep EKG Comments: Twelve-lead EKG 06/16/2020 12:04. Independently viewed by me. Sinus tachycardia, PVC, left atrial abnormality, left ventricular hypertrophy, QTC is 480 ms Transthoracic echocardiogram 06/16/2020. The ventricle ejection fraction 30 to 35% RV is normal in size and function Moderate mitral regurgitation There is no aortic valve stenosis Small pericardial effusion with no evidence of tamponade. Cardiac troponin 06/16/2020 1220-0.079 06/16/2020 1931-0.098 06/17/2020 905-0.070 NT proBNP 12,200. CTA chest abdomen 06/16/2020 1232 Small bilateral pleural effusions no focal consolidation Chest x-ray 06/16/2020 1137 Moderate cardiomegaly new from prior study. No overt failure. Bibasilar airspace disease cardiomegaly is noted. Impressions: Chest X-Ray 06/16/20 11:37 IMPRESSION: Marked cardiomegaly new from prior study. No overt failure. Right basilar airspace disease along with right pleural effusion. Chest/Abdomen CTA 06/16/20 12:32 IMPRESSION: Small bilateral pleural effusions with prominent interstitial markings. There is bibasilar atelectasis and lingular atelectasis. No focal consolidation. Findings may represent vascular congestion. No pulmonary emboli. Assessment & Plan - Diagnosis (1) Dilated cardiomyopathy Is this a current diagnosis for this admission?: Yes Plan: Echocardiogram confirms a diagnosis of dilated cardiomyopathy Recent loss in the family with significant grief reaction which raises the possibility of stress-induced cardiomyopathy. However this is a diagnosis of exclusion. Patient does have risk factors for cardiac disease including age as well as systemic hypertension Will be reasonable to initiate the patient on guideline directed medical therapy for congestive heart failure and pursue cardiac catheterization on an outpatient basis. (2) New onset of congestive heart failure Is this a current diagnosis for this admission?: Yes Plan: Acute decompensated congestive heart failure-systolic Patient is not significantly volume loaded at the time of my examination. Would recommend maintenance diuretic Initiate beta-sean and ALVARO/ARB. No added salt in the diet Restriction of free water intake to 1.25 to 1.5 L/day. (3) NSTEMI (non-ST elevated myocardial infarction) Is this a current diagnosis for this admission?: Yes Plan: In terms of medications enoxaparin can be discontinued since the troponins are only mildly elevated and are probably attributable to congestive heart failure rather than acute ischemia given absence chest pain or diagnostic EKG changes suggestive of myocardial ischemia Continue carvedilol 3.125 mg twice daily Continue losartan 50 mg daily Continue atorvastatin 80 mg daily Continue aspirin 81 mg daily (4) HTN (hypertension) Qualifiers: Hypertension type: essential hypertension Qualified Code(s): I10 - Essential (primary) hypertension Is this a current diagnosis for this admission?: Yes Plan: Watch blood pressure. - Notes Notes: In terms of medications enoxaparin can be discontinued since the troponins are only mildly elevated and are probably attributable to congestive heart failure rather than acute ischemia given absence chest pain or diagnostic EKG changes suggestive of myocardial ischemia Continue carvedilol 3.125 mg twice daily Continue losartan 50 mg daily Continue atorvastatin 80 mg daily Continue aspirin 81 mg daily Patient appears to be improved compared to admission. I discussed with her that the further work-up including cardiac catheterization can be pursued as an outpatient.
--- NOTE | 2020-06-17 16:25 | PDOC PROGRESS REPORT ---
Subjective Date:: 06/17/20 Subjective:: RAFFI MATTHEWS is a 65 year old female, PMH of HTN, current smoker, who c dalila in the ED today due to SOB. SOB started at around 3 am today with associated midsternal chest pain/heaviness that lasted for 1 hr and went away on its own. She called her sister and according to the sister she sounded groggy and confused. She has also noted increased leg swelling and admits that she has not been sleeping at all since her last June 05, 2020. She is a current everyday smoker 4 cig/day for 35 years. She denied any prior history of CHF or previous [place]. She has a history of depression and her sister is concerned that she might be depressed due to the recent passing of her . In the ED, BP 140/85, heart rate 116, respiratory rate 18, O2 sat 98% on room air. CBC was unremarkable. CMP showed transaminitis. Initial troponin 0.079 with an EKG showing sinus tachycardia, no ST elevation, left ventricular hypertrophy. BNP was 12,000. Chest x-ray showed cardiomegaly new onset, small bilateral pleural effusion. CT angio of the chest was negative for pulmonary embolism. She was given 1 dose of Lasix and hospitalist service was called for further evaluation and management. D2 Hospital stay Patient was seen and examined at bedside. No chest pain, no SOB. Afebrile. Echo reviewed EF 30-35%, LV systolic function moderately reduced. RV size and function, moderate amount of mitral regurg, no aortic valve stenosis. Trended down to 0.070. Per cardiology she would need to have coronary angiogram outpatient for ischemic work-up. Currently receiving guideline directed medications for heart failure. Reason For Visit: NEW ONSET CHF Physical Exam Vital Signs: Temp Pulse Resp BP Pulse Ox 98.6 F 99 14 94/61 L 95 06/17/20 11:39 06/17/20 13:47 06/17/20 13:47 06/17/20 11:39 06/17/20 13:47 Intake & Output 06/16/20 06/17/20 06/18/20 06:59 06:59 06:59 Intake Total 50 520 Balance 50 520 Weight 106 kg General appearance: PRESENT: no acute distress, cooperative Head exam: PRESENT: atraumatic, normocephalic Eye exam: PRESENT: EOMI, PERRLA Mouth exam: PRESENT: moist Neck exam: PRESENT: full ROM Respiratory exam: PRESENT: clear to auscultation sveta, symmetrical, unlabored Cardiovascular exam: PRESENT: RRR, +S1, +S2 Pulses: PRESENT: normal dorsalis pedis pul GI/Abdominal exam: PRESENT: normal bowel sounds, soft. ABSENT: rebound, tenderness Extremities exam: PRESENT: full ROM Musculoskeletal exam: PRESENT: full ROM Neurological exam: PRESENT: alert, awake, oriented to person, oriented to place, oriented to time, oriented to situation Psychiatric exam: PRESENT: normal mood Skin exam: PRESENT: normal color Results Laboratory Results: 06/17/20 04:48 06/17/20 04:48 06/16/20 06/17/20 06/17/20 12:20 04:48 04:48 WBC 10.7 H RBC 4.24 Hgb 12.2 Hct 35.8 L MCV 84 MCH 28.8 MCHC 34.1 RDW 14.1 H Plt Count 209 Seg Neutrophils % 73.5 Sodium 136.5 L Potassium 3.5 L D Chloride 104 Carbon Dioxide 29 Anion Gap 4 L BUN 12 Creatinine 0.84 Est GFR ( Amer) > 60 Glucose 109 Calcium 9.3 Total Bilirubin 1.2 AST 61 H Alkaline Phosphatase 123 Total Protein 6.1 L Albumin 3.2 L Triglycerides 105 Cholesterol 193.63 LDL Cholesterol Direct 128 H VLDL Cholesterol 21.0 HDL Cholesterol 55 TSH 0.74 06/16/20 06/16/20 06/16/20 12:20 12:20 19:31 Troponin I 0.079 0.098 NT-Pro-B Natriuret Pep [id number] H 06/17/20 09:05 Troponin I 0.070 NT-Pro-B Natriuret Pep Impressions: Chest X-Ray 06/16/20 11:37 IMPRESSION: Marked cardiomegaly new from prior study. No overt failure. Right basilar airspace disease along with right pleural effusion. Chest/Abdomen CTA 06/16/20 12:32 IMPRESSION: Small bilateral pleural effusions with prominent interstitial markings. There is bibasilar atelectasis and lingular atelectasis. No focal consolidation. Findings may represent vascular congestion. No pulmonary emboli. Assessment and Plan - Diagnosis (1) New onset of congestive heart failure Is this a current diagnosis for this admission?: Yes Plan: - hx of HTN and current smoker but otherwise no prior hx of CHF, previous [place] - recently - +ve grade 1 pitting edema - CXR cardiomegaly - EKG sinus tachy, LVH, no ST elevation - troponin 0.079>0.098>0.070 - BNP 12,200 - +ve amphetamine on Utox. patient denied using - DDx; CHF 2/2 ACS or Stress cardiomyopathy or 2/2 amphetamine use - Stat echo ordered - lasix 40 Iv BID - Started on ARB, aspirin and statin - carvedilol for beta sean - will need cardiac cath outpatient - cardio consulted. continue guideline directed medical treatment - daily weights - strict IO (2) NSTEMI (non-ST elevated myocardial infarction) Is this a current diagnosis for this admission?: Yes Plan: - complained of sudden onset SOB with chest pain midsternal lasted 1 hr spontaneously resolved - hx of HTN, Current everyday smoker, no prior [place] - trop 0.079 peaked at 0.098 then trended down - EKG sinus tachy, LVH, no ST elevation - BRANDON score 3 points - given aspirin 325, then 81 mg daily - started on statin and ARB - started on therapeutic lovenox - PRN SL NTG for chest pain - echo EF 30-35%, mod LV systolic dysfunction - cardiac cath outpatient (3) HTN (hypertension) Qualifiers: Qualified Code(s): I10 - Essential (primary) hypertension Is this a current diagnosis for this admission?: Yes Plan: - On losartan but poorly compliant - losartan resumed - started on carvedilol (4) Chest pain Qualifiers: Qualified Code(s): R07.2 - Precordial pain Is this a current diagnosis for this admission?: Yes Plan: - likely ACS or stress cardiomyopathy - CTA negative for Pulm embolism - management as above (5) Grief reaction Is this a current diagnosis for this admission?: Yes Plan: - recently from [facility] - is tearful on exam - denies SI - psych consulted from the ED - Time Time Spent with patient: 15-24 minutes Smoking Cessation Education: 3 to 10 minutes Medications reviewed and adjusted accordingly: Yes Anticipated Discharge Disposition: Home with Home Health Anticipated Discharge Timeframe: within 48 hours
[2020-06-17] MEDS: ATORVASTATIN CALCIUM 80 MG TABLET PO SCH (22:44)
[2020-06-18 05:33] LABS: ABSOLUTE EOSINOPHILS # (AUTO) 0.6 10^3/uL (0.0-0.6); ABSOLUTE MONOCYTES (AUTO) 0.6 10^3/uL (0.1-1.4); BASOPHILS % (AUTO) 0.5 % (0-2); EOSINOPHILS % (AUTO) 7.3 % (0-6); HEMATOCRIT 40.2 % (36.0-47.0); HEMOGLOBIN 13.6 g/dL (12.0-15.5); MEAN CORPUSCULAR HEMOGLOBIN 28.6 pg (27.0-33.4); MEAN CORPUSCULAR HGB CONC 33.9 g/dL (32.0-36.0); MEAN CORPUSCULAR VOLUME 84 fl (80-97); MONOCYTES % (AUTO) 7.7 % (3-13); PLATELET COUNT 220 10^3/uL (150-450); RED BLOOD COUNT 4.77 10^6/uL (3.72-5.28); RED CELL DISTRIBUTION WIDTH 14.2 % (11.5-14.0); SEGMENTED NEUTROPHILS % (AUTO) 72.5 % (42-78); TOTAL CELLS COUNTED % (AUTO) 100 %; WHITE BLOOD COUNT 8.3 10^3/uL (4.0-10.5)
[2020-06-18 05:52] LABS: ALBUMIN 3.2 g/dL (3.5-5.0); ALKALINE PHOSPHATASE 135 U/L (38-126); ANION GAP 9 (5-19); ASPARTATE AMINO TRANSFERASE 35 U/L (14-36); BILIRUBIN,DIRECT 0.3 mg/dL (0.0-0.4); BILIRUBIN,TOTAL 0.9 mg/dL (0.2-1.3); BLOOD UREA NITROGEN 11 mg/dL (7-20); CALCIUM 8.9 mg/dL (8.4-10.2); CARBON DIOXIDE 27 mmol/L (22-30); CHLORIDE 103 mmol/L (98-107); GLUCOSE 108 mg/dL (75-110); POTASSIUM 3.7 mmol/L (3.6-5.0); TOTAL PROTEIN 6.1 g/dL (6.3-8.2)
[2020-06-18] MEDS: PANTOPRAZOLE SODIUM 20 MG TABLET.DR PO SCH (05:54)
[2020-06-18] MEDS ORDERED: DIPHENHYDRAMINE HCL 50 MG/ML VIAL IV ONE (10:58)
[2020-06-18] MEDS ORDERED: EPINEPHRINE INJ/PF 1 MG/1 ML AMPULE IM ONE (11:07)
[2020-06-18] MEDS: BUSPIRONE HCL 10 MG TABLET PO SCH ×2 (11:12→18:50)
[2020-06-18] MEDS: LOSARTAN POTASSIUM 50 MG TABLET PO SCH (11:12)
[2020-06-18] MEDS: ASPIRIN 81 MG TABLET, CHEWABLE PO SCH (11:13)
[2020-06-18] MEDS: CARVEDILOL 3.125 MG TABLET PO SCH ×2 (11:13→22:11)
[2020-06-18] MEDS: FUROSEMIDE INJ/PF 40 MG/4 ML SDV IV SCH ×2 (11:17→22:11)
[2020-06-18] MEDS: ENOXAPARIN SODIUM INJ 100 MG/1 ML DISP.SYRIN SUBCUT SCH ×2 (11:30→22:11)
[2020-06-18 13:45] LABS: APPEARANCE,URINE CLEAR; BILIRUBIN,URINE NEGATIVE (NEGATIVE); COLOR,URINE YELLOW; GLUCOSE, URINE NEGATIVE (NEGATIVE); KETONES,URINE NEGATIVE (NEGATIVE); LEUKOCYTE ESTERASE,URINE NEGATIVE (NEGATIVE); NITRITE,URINE NEGATIVE (NEGATIVE); PROTEIN,URINE NEGATIVE (NEGATIVE); URINE SPECIFIC GRAVITY 1.021; UROBILINOGEN,URINE NEGATIVE mg/dL (<2.0)
--- NOTE | 2020-06-18 16:54 | PDOC PROGRESS REPORT ---
Subjective Date:: 06/18/20 Subjective:: RAFFI MATTHEWS is a 65 year old female, PMH of HTN, current smoker, who c dalila in the ED today due to SOB. SOB started at around 3 am today with associated midsternal chest pain/heaviness that lasted for 1 hr and went away on its own. She called her sister and according to the sister she sounded groggy and confused. She has also noted increased leg swelling and admits that she has not been sleeping at all since her last June 05, 2020. She is a current everyday smoker 4 cig/day for 35 years. She denied any prior history of CHF or previous [place]. She has a history of depression and her sister is concerned that she might be depressed due to the recent passing of her . In the ED, BP 140/85, heart rate 116, respiratory rate 18, O2 sat 98% on room air. CBC was unremarkable. CMP showed transaminitis. Initial troponin 0.079 with an EKG showing sinus tachycardia, no ST elevation, left ventricular hypertrophy. BNP was 12,000. Chest x-ray showed cardiomegaly new onset, small bilateral pleural effusion. CT angio of the chest was negative for pulmonary embolism. She was given 1 dose of Lasix and hospitalist service was called for further evaluation and management. D2 Hospital stay Patient was seen and examined at bedside. No chest pain, no SOB. Afebrile. Echo reviewed EF 30-35%, LV systolic function moderately reduced. RV size and function, moderate amount of mitral regurg, no aortic valve stenosis. Trended down to 0.070. Per cardiology she would need to have coronary angiogram outpatient for ischemic work-up. Currently receiving guideline directed medications for heart failure. D3 hospital stay. Patient was seen and examined at bedside. She was noted to have facial swelling this morning. She denied any tongue swelling, SOB, palm swelling, rashes. She reports allergies to penicillin and she was given 1 dose of Ceftriaxone when she was admitted. She was also on Losartan however she has taken this before and her presentation is not typical for angioedema with no tongue swelling. Sh ewas given 1 dose of IM epinephrine, famotidine, benadryl and hydrocortisone. Her VS remained stable. Reason For Visit: NEW ONSET CHF Physical Exam Vital Signs: Temp Pulse Resp BP Pulse Ox 97.7 F 51 L 16 151/51 H 94 06/18/20 15:00 06/18/20 15:00 06/18/20 15:00 06/18/20 15:00 06/18/20 15:00 Intake & Output 06/17/20 06/18/20 06/19/20 06:59 06:59 06:59 Intake Total 50 1490 200 Output Total 0 Balance 50 1490 200 Weight 106 kg 106 kg General appearance: PRESENT: no acute distress, cooperative, obese Eye exam: PRESENT: periorbital swelling, other - Facial swelling, no tongue swelling Mouth exam: PRESENT: moist Throat exam: ABSENT: post pharyngeal erythema, tonsillar erythema Neck exam: PRESENT: full ROM Respiratory exam: PRESENT: clear to auscultation sveta, symmetrical, unlabored Cardiovascular exam: PRESENT: RRR, +S1, +S2 Pulses: PRESENT: +2 pedal pulses bilateral GI/Abdominal exam: PRESENT: normal bowel sounds, soft. ABSENT: rebound, tenderness Extremities exam: PRESENT: full ROM Musculoskeletal exam: PRESENT: full ROM Neurological exam: PRESENT: alert, awake, oriented to person, oriented to place, oriented to time, oriented to situation Psychiatric exam: PRESENT: normal mood Skin exam: PRESENT: normal color Results Laboratory Results: 06/18/20 04:29 06/18/20 04:29 06/18/20 06/18/20 06/18/20 04:29 04:29 13:00 WBC 8.3 RBC 4.77 Hgb 13.6 Hct 40.2 MCV 84 MCH 28.6 MCHC 33.9 RDW 14.2 H Plt Count 220 Seg Neutrophils % 72.5 Sodium 139.0 Potassium 3.7 Chloride 103 Carbon Dioxide 27 Anion Gap 9 BUN 11 Creatinine 0.84 Est GFR ( Amer) > 60 Glucose 108 Calcium 8.9 Total Bilirubin 0.9 AST 35 Alkaline Phosphatase 135 H Total Protein 6.1 L Albumin 3.2 L Urine Color YELLOW Urine Appearance CLEAR Urine pH 6.0 Ur Specific [place] 1.021 Urine Protein NEGATIVE Urine Glucose (UA) NEGATIVE Urine Ketones NEGATIVE Urine Blood NEGATIVE Urine Nitrite NEGATIVE Ur Leukocyte Esterase NEGATIVE Urine WBC (Auto) 1 Urine RBC (Auto) 0 06/16/20 12:05 Clean Catch Midstream Urine Culture - Final Escherichia Coli 06/16/20 06/16/20 06/16/20 12:20 12:20 19:31 Troponin I 0.079 0.098 NT-Pro-B Natriuret Pep [id number] H 06/17/20 09:05 Troponin I 0.070 NT-Pro-B Natriuret Pep Impressions: Chest X-Ray 06/16/20 11:37 IMPRESSION: Marked cardiomegaly new from prior study. No overt failure. Right basilar airspace disease along with right pleural effusion. Chest/Abdomen CTA 06/16/20 12:32 IMPRESSION: Small bilateral pleural effusions with prominent interstitial markings. There is bibasilar atelectasis and lingular atelectasis. No focal consolidation. Findings may represent vascular congestion. No pulmonary emboli. Assessment and Plan - Diagnosis (1) New onset of congestive heart failure Is this a current diagnosis for this admission?: Yes Plan: - hx of HTN and current smoker but otherwise no prior hx of CHF, previous NH - recently - +ve grade 1 pitting edema - CXR cardiomegaly - EKG sinus tachy, LVH, no ST elevation - troponin 0.079>0.098>0.070 - BNP 12,200 - +ve amphetamine on Utox. patient denied using - DDx; CHF 2/2 ACS or Stress cardiomyopathy or 2/2 amphetamine use - echo showed EF 30-35%, decreased LV systolic function - lasix 40 IV BID - Started on ARB, aspirin and statin - carvedilol for beta sean - will need cardiac cath outpatient - cardio consulted. continue guideline directed medical treatment - daily weights - strict IO (2) NSTEMI (non-ST elevated myocardial infarction) Is this a current diagnosis for this admission?: Yes Plan: - complained of sudden onset SOB with chest pain midsternal lasted 1 hr spontaneously resolved - hx of HTN, Current everyday smoker, no prior NH - trop 0.079 peaked at 0.098 then trended down - EKG sinus tachy, LVH, no ST elevation - BRANDON score 3 points - given aspirin 325, then 81 mg daily - started on statin and ARB - started on therapeutic lovenox - PRN SL NTG for chest pain - echo EF 30-35%, mod LV systolic dysfunction - cardiac cath outpatient (3) HTN (hypertension) Qualifiers: Hypertension type: essential hypertension Qualified Code(s): I10 - Essential (primary) hypertension Is this a current diagnosis for this admission?: Yes Plan: - On losartan but poorly compliant - losartan resumed - started on carvedilol (4) Chest pain Qualifiers: Chest pain type: precordial pain Qualified Code(s): R07.2 - Precordial pain Is this a current diagnosis for this admission?: Yes Plan: - likely ACS or stress cardiomyopathy - CTA negative for Pulm embolism - management as above (5) Grief reaction Is this a current diagnosis for this admission?: Yes Plan: - recently from [facility] - is tearful on exam - denies SI - psych consulted from the ED (6) Facial swelling Is this a current diagnosis for this admission?: Yes Plan: - noted this morning - No tongue swelling, no dysphagia or dyspnea, no wheezing, no rashes - received rocephin in the ED, also on losartan but she has taken this in the past - given epi IM, hydrocort, benadryl and famitidine - continue to monitor - I have stopped his rocephin, protonix - losartan to continue due to CHF - Time Time Spent with patient: 25-34 minutes Medications reviewed and adjusted accordingly: Yes Anticipated Discharge Disposition: Home with Home Health Anticipated Discharge Timeframe: within 48 hours
[2020-06-18] MEDS: FAMOTIDINE INJ/PF 20 MG/2 ML SDV IV SCH (22:13)
[2020-06-18] MEDS: ATORVASTATIN CALCIUM 80 MG TABLET PO SCH (22:13)
[2020-06-18] MEDS: HYDROCORTISONE SOD SUCCINATE INJ/PF 100 MG/2 ML SDV IV SCH (22:13)
[2020-06-19] MEDS: HYDROCORTISONE SOD SUCCINATE INJ/PF 100 MG/2 ML SDV IV SCH ×2 (05:40→14:00)
[2020-06-19 06:37] LABS: ABSOLUTE EOSINOPHILS # (AUTO) 0.2 10^3/uL (0.0-0.6); ABSOLUTE LYMPHOCYTES (AUTO) 1.2 10^3/uL (0.5-4.7); ABSOLUTE MONOCYTES (AUTO) 0.4 10^3/uL (0.1-1.4); ABSOLUTE NEUT (AUTO) 6.2 10^3/uL (1.7-8.2); BASOPHILS % (AUTO) 0.3 % (0-2); EOSINOPHILS % (AUTO) 1.9 % (0-6); HEMATOCRIT 37.5 % (36.0-47.0); MEAN CORPUSCULAR HEMOGLOBIN 29.4 pg (27.0-33.4); MEAN CORPUSCULAR HGB CONC 34.7 g/dL (32.0-36.0); MEAN CORPUSCULAR VOLUME 85 fl (80-97); MONOCYTES % (AUTO) 5.3 % (3-13); PLATELET COUNT 233 10^3/uL (150-450); RED BLOOD COUNT 4.44 10^6/uL (3.72-5.28); RED CELL DISTRIBUTION WIDTH 14.2 % (11.5-14.0); SEGMENTED NEUTROPHILS % (AUTO) 77.5 % (42-78); TOTAL CELLS COUNTED % (AUTO) 100 %
[2020-06-19 07:01] LABS: ALBUMIN 3.3 g/dL (3.5-5.0); ALKALINE PHOSPHATASE 119 U/L (38-126); ANION GAP 7 (5-19); ASPARTATE AMINO TRANSFERASE 27 U/L (14-36); BILIRUBIN,DIRECT 0.3 mg/dL (0.0-0.4); BILIRUBIN,TOTAL 1.1 mg/dL (0.2-1.3); BLOOD UREA NITROGEN 13 mg/dL (7-20); CALCIUM 9.3 mg/dL (8.4-10.2); CARBON DIOXIDE 28 mmol/L (22-30); CHLORIDE 105 mmol/L (98-107); GLUCOSE 124 mg/dL (75-110); POTASSIUM 3.4 mmol/L (3.6-5.0); TOTAL PROTEIN 6.1 g/dL (6.3-8.2)
[2020-06-19] MEDS: LOSARTAN POTASSIUM 50 MG TABLET PO SCH (09:51)
[2020-06-19] MEDS: BUSPIRONE HCL 10 MG TABLET PO SCH (09:51)
[2020-06-19] MEDS: CARVEDILOL 3.125 MG TABLET PO SCH (09:52)
[2020-06-19] MEDS: ENOXAPARIN SODIUM INJ 100 MG/1 ML DISP.SYRIN SUBCUT SCH (09:52)
[2020-06-19] MEDS: FUROSEMIDE INJ/PF 40 MG/4 ML SDV IV SCH (09:52)
[2020-06-19] MEDS: FAMOTIDINE INJ/PF 20 MG/2 ML SDV IV SCH (09:52)
[2020-06-19] MEDS: ASPIRIN 81 MG TABLET, CHEWABLE PO SCH (09:52)
[2020-06-19] MEDS: MAGNESIUM SULFATE/D5W 1 GM/100 ML RTUPB IV SCH ×2 (12:35→13:59)
[2020-06-19] MEDS ORDERED: LOPERAMIDE HCL 2 MG CAPSULE PO ONE (13:00)
[2020-06-19 16:28] VITALS: BP 113/73
--- NOTE | 2020-06-19 18:02 | PDOC PROGRESS REPORT ---
Subjective Date:: 06/19/20 Subjective:: RAFFI MATTHEWS is a 65 year old female, PMH of HTN, current smoker, who c dalila in the ED today due to SOB. SOB started at around 3 am today with associated midsternal chest pain/heaviness that lasted for 1 hr and went away on its own. She called her sister and according to the sister she sounded groggy and confused. She has also noted increased leg swelling and admits that she has not been sleeping at all since her last June 05, 2020. She is a current everyday smoker 4 cig/day for 35 years. She denied any prior history of CHF or previous [place]. She has a history of depression and her sister is concerned that she might be depressed due to the recent passing of her . In the ED, BP 140/85, heart rate 116, respiratory rate 18, O2 sat 98% on room air. CBC was unremarkable. CMP showed transaminitis. Initial troponin 0.079 with an EKG showing sinus tachycardia, no ST elevation, left ventricular hypertrophy. BNP was 12,000. Chest x-ray showed cardiomegaly new onset, small bilateral pleural effusion. CT angio of the chest was negative for pulmonary embolism. She was given 1 dose of Lasix and hospitalist service was called for further evaluation and management. D2 Hospital stay Patient was seen and examined at bedside. No chest pain, no SOB. Afebrile. Echo reviewed EF 30-35%, LV systolic function moderately reduced. RV size and function, moderate amount of mitral regurg, no aortic valve stenosis. Trended down to 0.070. Per cardiology she would need to have coronary angiogram outpatient for ischemic work-up. Currently receiving guideline directed medications for heart failure. D3 hospital stay. Patient was seen and examined at bedside. She was noted to have facial swelling this morning. She denied any tongue swelling, SOB, palm swelling, rashes. She reports allergies to penicillin and she was given 1 dose of Ceftriaxone when she was admitted. She was also on Losartan however she has taken this before and her presentation is not typical for angioedema with no tongue swelling. Sh ewas given 1 dose of IM epinephrine, famotidine, benadryl and hydrocortisone. Her VS remained stable. Reason For Visit: NEW ONSET CHF Physical Exam Vital Signs: Temp Pulse Resp BP Pulse Ox 98.6 F 87 18 113/73 95 06/19/20 16:00 06/19/20 16:00 06/19/20 16:00 06/19/20 16:00 06/19/20 16:00 Intake & Output 06/18/20 06/19/20 06/20/20 06:59 06:59 06:59 Intake Total 1490 1217 230 Output Total 1100 800 Balance 1490 117 -570 Weight 106 kg 106 kg Results Laboratory Results: 06/19/20 06:13 06/19/20 06:13 06/19/20 06/19/20 06/19/20 06:13 06:13 06:13 WBC 8.0 RBC 4.44 Hgb 13.0 Hct 37.5 MCV 85 MCH 29.4 MCHC 34.7 RDW 14.2 H Plt Count 233 Seg Neutrophils % 77.5 Sodium 140.1 Potassium 3.4 L Chloride 105 Carbon Dioxide 28 Anion Gap 7 BUN 13 Creatinine 0.83 Est GFR ( Amer) > 60 Glucose 124 H Calcium 9.3 Magnesium 1.5 L Total Bilirubin 1.1 AST 27 Alkaline Phosphatase 119 Total Protein 6.1 L Albumin 3.3 L 06/16/20 06/16/20 06/16/20 12:20 12:20 19:31 Troponin I 0.079 0.098 NT-Pro-B Natriuret Pep 14714 H 06/17/20 06/18/20 09:05 09:05 Troponin I 0.070 NT-Pro-B Natriuret Pep 5230 H Impressions: Chest X-Ray 06/16/20 11:37 IMPRESSION: Marked cardiomegaly new from prior study. No overt failure. Right basilar airspace disease along with right pleural effusion. Chest/Abdomen CTA 06/16/20 12:32 IMPRESSION: Small bilateral pleural effusions with prominent interstitial markings. There is bibasilar atelectasis and lingular atelectasis. No focal consolidation. Findings may represent vascular congestion. No pulmonary emboli. Assessment and Plan - Diagnosis (1) New onset of congestive heart failure Is this a current diagnosis for this admission?: Yes (2) NSTEMI (non-ST elevated myocardial infarction) Is this a current diagnosis for this admission?: Yes (3) HTN (hypertension) Qualifiers: Hypertension type: essential hypertension Qualified Code(s): I10 - Essential (primary) hypertension Is this a current diagnosis for this admission?: Yes (4) Chest pain Qualifiers: Chest pain type: precordial pain Qualified Code(s): R07.2 - Precordial pain Is this a current diagnosis for this admission?: Yes (5) Grief reaction Is this a current diagnosis for this admission?: Yes (6) Facial swelling Is this a current diagnosis for this admission?: Yes
--- NOTE | 2020-06-19 23:43 | EKG REPORT ---
SEVERITY:- ABNORMAL ECG - SINUS TACHYCARDIA VENTRICULAR PREMATURE COMPLEX PROBABLE LEFT ATRIAL ABNORMALITY LVH WITH SECONDARY REPOLARIZATION ABNORMALITY BORDERLINE PROLONGED QT INTERVAL : Confirmed by: Angela Ch 19-Jun-2020 23:43:02
[2020-06-20] MEDS ORDERED: MAGNESIUM OXIDE 400 MG TABLET PO SCH (10:00)
--- NOTE | 2020-06-21 19:04 | PDOC DISCHARGE SUMMARY ---
Impression - Admit/DC Date/PCP Admission Date/Primary Care Provider: 06/16/20 15:56 OMKAR CLEANING MD Discharge Date: 06/19/20 - Discharge Diagnosis (1) New onset of congestive heart failure Is this a current diagnosis for this admission?: Yes (2) NSTEMI (non-ST elevated myocardial infarction) Is this a current diagnosis for this admission?: Yes (3) HTN (hypertension) Is this a current diagnosis for this admission?: Yes (4) Chest pain Is this a current diagnosis for this admission?: Yes (5) Grief reaction Is this a current diagnosis for this admission?: Yes (6) Facial swelling Is this a current diagnosis for this admission?: Yes - Assessment Summary: (1) New onset of congestive heart failure Is this a current diagnosis for this admission?: Yes Plan: - hx of HTN and current smoker but otherwise no prior hx of CHF, previous MO - recently - +ve grade 1 pitting edema - CXR cardiomegaly - EKG sinus tachy, LVH, no ST elevation - troponin 0.079>0.098>0.070 - BNP 12,200 - +ve amphetamine on Utox. patient denied using - DDx; CHF 2/2 ACS or Stress cardiomyopathy or 2/2 amphetamine use - echo showed EF 30-35%, decreased LV systolic function - lasix 40 IV BID - Started on ARB, aspirin and statin - carvedilol for beta sean - will need cardiac cath outpatient - cardio consulted. continue guideline directed medical treatment - daily weights - strict IO (2) NSTEMI (non-ST elevated myocardial infarction) Is this a current diagnosis for this admission?: Yes Plan: - complained of sudden onset SOB with chest pain midsternal lasted 1 hr spontaneously resolved - hx of HTN, Current everyday smoker, no prior MO - trop 0.079 peaked at 0.098 then trended down - EKG sinus tachy, LVH, no ST elevation - BRANDON score 3 points - given aspirin 325, then 81 mg daily - started on statin and ARB - started on therapeutic lovenox - PRN SL NTG for chest pain - echo EF 30-35%, mod LV systolic dysfunction - cardiac cath outpatient (3) HTN (hypertension) Qualifiers: Hypertension type: essential hypertension Qualified Code(s): I10 - Essential (primary) hypertension Is this a current diagnosis for this admission?: Yes Plan: - On losartan but poorly compliant - losartan resumed - started on carvedilol (4) Chest pain Qualifiers: Chest pain type: precordial pain Qualified Code(s): R07.2 - Precordial pain Is this a current diagnosis for this admission?: Yes Plan: - likely ACS or stress cardiomyopathy - CTA negative for Pulm embolism - management as above (5) Grief reaction Is this a current diagnosis for this admission?: Yes Plan: - recently from [facility] - is tearful on exam - denies SI - psych consulted from the ED (6) Facial swelling Is this a current diagnosis for this admission?: Yes Plan: - noted this morning - No tongue swelling, no dysphagia or dyspnea, no wheezing, no rashes - received rocephin in the ED, also on losartan but she has taken this in the past - given epi IM, hydrocort, benadryl and famitidine - continue to monitor - I have stopped his rocephin, protonix - losartan to continue due to CHF - Additional Information Resuscitation Status: Full Code Discharge Diet: Cardiac Discharge Activity: Activity As Tolerated, Balance Activity w/Rest, Weigh Daily Referrals: OMKAR CLEANING MD [Primary Care Provider] - Prescriptions: Aspirin [Aspirin 81 mg Chewable Tablet] 81 mg PO DAILY 30 Days #30 tab.chew Carvedilol [Coreg 3.125 mg Tablet] 3.125 mg PO Q12 30 Days #60 tablet Losartan Potassium [Cozaar 50 mg Tablet] 50 mg PO DAILY 30 Days #30 tablet Furosemide [Lasix 40 mg Tablet] 40 mg PO QAM 30 Days #30 tablet Atorvastatin Calcium [Lipitor 80 mg Tablet] 80 mg PO QHS 30 Days #30 tablet Bupropion HCl [Wellbutrin 75 Mg Tablet] 75 mg PO DAILY 30 Days #30 tablet Home Medications: Lorazepam [Ativan] 1 mg PO TID 06/16/20 Aspirin [Aspirin 81 mg Chewable Tablet] 81 mg PO DAILY 30 Days #30 tab.chew 06/19/20 Atorvastatin Calcium [Lipitor 80 mg Tablet] 80 mg PO QHS 30 Days #30 tablet 06/19/20 Bupropion HCl [Wellbutrin 75 Mg Tablet] 75 mg PO DAILY 30 Days #30 tablet 06/19/20 Carvedilol [Coreg 3.125 mg Tablet] 3.125 mg PO Q12 30 Days #60 tablet 06/19/20 Furosemide [Lasix 40 mg Tablet] 40 mg PO QAM 30 Days #30 tablet 06/19/20 Losartan Potassium [Cozaar 50 mg Tablet] 50 mg PO DAILY 30 Days #30 tablet History of Present Illiness History of Present Illness: RAFFI MATTHEWS is a 65 year old female, PMH of HTN, current smoker, who came in the ED today due to SOB. SOB started at around 3 am today with associated midsternal chest pain/heaviness that lasted for 1 hr and went away on its own. She called her sister and according to the sister she sounded groggy and confused. She has also noted increased leg swelling and admits that she has not been sleeping at all since her last June 05, 2020. She is a current everyday smoker 4 cig/day for 35 years. She denied any prior history of CHF or previous MO. She has a history of depression and her sister is concerned that she might be depressed due to the recent passing of her . In the ED, BP 140/85, heart rate 116, respiratory rate 18, O2 sat 98% on room air. CBC was unremarkable. CMP showed transaminitis. Initial troponin 0.079 with an EKG showing sinus tachycardia, no ST elevation, left ventricular hypertrophy. BNP was 12,000. Chest x-ray showed cardiomegaly new onset, small bilateral pleural effusion. CT angio of the chest was negative for pulmonary embolism. She was given 1 dose of Lasix and hospitalist service was called for further evaluation and management. Hospital Course Hospital Course: D2 Hospital stay Patient was seen and examined at bedside. No chest pain, no SOB. Afebrile. Echo reviewed EF 30-35%, LV systolic function moderately reduced. RV size and function, moderate amount of mitral regurg, no aortic valve stenosis. Trended down to 0.070. Per cardiology she would need to have coronary angiogram outpatient for ischemic work-up. Currently receiving guideline directed medications for heart failure. D3 hospital stay. Patient was seen and examined at bedside. She was noted to have facial swelling this morning. She denied any tongue swelling, SOB, palm swelling, rashes. She reports allergies to penicillin and she was given 1 dose of Ceftriaxone when she was admitted. She was also on Losartan however she has taken this before and her presentation is not typical for angioedema with no tongue swelling. Sh ewas given 1 dose of IM epinephrine, famotidine, benadryl and hydrocortisone. Her VS remained stable. D4 hospital stay Patient was discharged on Jun 19, 2020 with schedule for outpatient follow up with Patrice Ellsworth for outpatient cardiac cath. She was discharged on guideline directed medical therapy. Physical Exam Vital Signs: Temp Pulse Resp BP Pulse Ox 98.6 F 87 18 113/73 95 06/19/20 16:00 06/19/20 16:00 06/19/20 16:00 06/19/20 16:00 06/19/20 16:00 Intake & Output 06/20/20 06/21/20 06/22/20 06:59 06:59 06:59 Intake Total 230 Output Total 800 Balance -570 General appearance: PRESENT: no acute distress, cooperative Head exam: PRESENT: atraumatic, normocephalic Eye exam: PRESENT: EOMI, PERRLA Mouth exam: PRESENT: moist Neck exam: PRESENT: full ROM Respiratory exam: PRESENT: clear to auscultation sveta, symmetrical, unlabored Cardiovascular exam: PRESENT: RRR, +S1, +S2 GI/Abdominal exam: PRESENT: normal bowel sounds, soft. ABSENT: rebound, tenderness Extremities exam: PRESENT: full ROM Musculoskeletal exam: PRESENT: full ROM Neurological exam: PRESENT: alert, awake, oriented to person, oriented to place, oriented to time, oriented to situation Psychiatric exam: PRESENT: normal mood Skin exam: PRESENT: normal color Results Laboratory Results: WBC 8.0 10^3/uL (4.0-10.5) 06/19/20 06:13 RBC 4.44 10^6/uL (3.72-5.28) 06/19/20 06:13 Hgb 13.0 g/dL (12.0-15.5) 06/19/20 06:13 Hct 37.5 % (36.0-47.0) 06/19/20 06:13 MCV 85 fl (80-97) 06/19/20 06:13 MCH 29.4 pg (27.0-33.4) 06/19/20 06:13 MCHC 34.7 g/dL (32.0-36.0) 06/19/20 06:13 RDW 14.2 % (11.5-14.0) H 06/19/20 06:13 Plt Count 233 10^3/uL (150-450) 06/19/20 06:13 Lymph % (Auto) 15.0 % (13-45) 06/19/20 06:13 [place] % (Auto) 5.3 % (3-13) 06/19/20 06:13 Eos % (Auto) 1.9 % (0-6) 06/19/20 06:13 Baso % (Auto) 0.3 % (0-2) 06/19/20 06:13 Absolute Neuts (auto) 6.2 10^3/uL (1.7-8.2) 06/19/20 06:13 Absolute Lymphs (auto) 1.2 10^3/uL (0.5-4.7) 06/19/20 06:13 Absolute Monos (auto) 0.4 10^3/uL (0.1-1.4) 06/19/20 06:13 Absolute Eos (auto) 0.2 10^3/uL (0.0-0.6) 06/19/20 06:13 Absolute Basos (auto) 0.0 10^3/uL (0.0-0.2) 06/19/20 06:13 Seg Neutrophils % 77.5 % (42-78) 06/19/20 06:13 Sodium 140.1 mmol/L (137-145) 06/19/20 06:13 Potassium 3.4 mmol/L (3.6-5.0) L 06/19/20 06:13 Chloride 105 mmol/L (98-107) 06/19/20 06:13 Carbon Dioxide 28 mmol/L (22-30) 06/19/20 06:13 Anion Gap 7 (5-19) 06/19/20 06:13 BUN 13 mg/dL (7-20) 06/19/20 06:13 Creatinine 0.83 mg/dL (0.52-1.25) 06/19/20 06:13 Est GFR ( Amer) > 60 (>60) 06/19/20 06:13 Est GFR (MDRD) Non-Af > 60 (>60) 06/19/20 06:13 Glucose 124 mg/dL (75-110) H 06/19/20 06:13 Hemoglobin A1c % 4.7 % (4.7-6.0) 06/17/20 04:48 Calcium 9.3 mg/dL (8.4-10.2) 06/19/20 06:13 Magnesium 1.5 mg/dL (1.6-2.3) L 06/19/20 06:13 Total Bilirubin 1.1 mg/dL (0.2-1.3) 06/19/20 06:13 Direct Bilirubin 0.3 mg/dL (0.0-0.4) 06/19/20 06:13 Neonat Total Bilirubin Not Reportable 06/19/20 06:13 Neonat Direct Bilirubin Not Reportable 06/19/20 06:13 Neonat Indirect Bili Not Reportable 06/19/20 06:13 AST 27 U/L (14-36) 06/19/20 06:13 ALT 47 U/L (<35) H 06/19/20 06:13 Alkaline Phosphatase 119 U/L (38-126) 06/19/20 06:13 Troponin I 0.070 ng/mL 06/17/20 09:05 NT-Pro-B Natriuret Pep 5230 pg/mL (<125) H 06/18/20 09:05 Total Protein 6.1 g/dL (6.3-8.2) L 06/19/20 06:13 Albumin 3.3 g/dL (3.5-5.0) L 06/19/20 06:13 Triglycerides 105 mg/dL (<150) 06/17/20 04:48 Cholesterol 193.63 mg/dL (0-200) 06/17/20 04:48 LDL Cholesterol Direct 128 mg/dL (<100) H 06/17/20 04:48 VLDL Cholesterol 21.0 mg/dL (10-31) 06/17/20 04:48 HDL Cholesterol 55 mg/dL (>40) 06/17/20 04:48 TSH 0.74 uIU/mL (0.47-4.68) 06/16/20 12:20 Urine Color YELLOW 06/18/20 13:00 Urine Appearance CLEAR 06/18/20 13:00 Urine pH 6.0 (5.0-9.0) 06/18/20 13:00 Ur Specific [place] 1.021 06/18/20 13:00 Urine Protein NEGATIVE mg/dL (NEGATIVE) 06/18/20 13:00 Urine Glucose (UA) NEGATIVE mg/dL (NEGATIVE) 06/18/20 13:00 Urine Ketones NEGATIVE mg/dL (NEGATIVE) 06/18/20 13:00 Urine Blood NEGATIVE (NEGATIVE) 06/18/20 13:00 Urine Nitrite NEGATIVE (NEGATIVE) 06/18/20 13:00 Urine Bilirubin NEGATIVE (NEGATIVE) 06/18/20 13:00 Urine Urobilinogen NEGATIVE mg/dL (<2.0) 06/18/20 13:00 Ur Leukocyte Esterase NEGATIVE (NEGATIVE) 06/18/20 13:00 Urine WBC (Auto) 1 /HPF 06/18/20 13:00 Urine RBC (Auto) 0 /HPF 06/18/20 13:00 Urine Bacteria (Auto) 3+ /HPF 06/16/20 12:05 Squamous Epi Cells Auto 1 /HPF 06/18/20 13:00 Urine Mucus (Auto) MANY /LPF 06/18/20 13:00 Urine Ascorbic Acid NEGATIVE (NEGATIVE) 06/18/20 13:00 Salicylates < 1.0 mg/dL (2.0-20.0) L 06/16/20 12:20 Urine Opiates Screen NEGATIVE 06/16/20 12:05 Urine Methadone Screen NEGATIVE 06/16/20 12:05 Acetaminophen < 10 ug/mL (10-30) L 06/16/20 12:20 Ur Barbiturates Screen NEGATIVE 06/16/20 12:05 Ur Phencyclidine Scrn NEGATIVE 06/16/20 12:05 Ur Amphetamines Screen UNCONFIRMED POSITIVE 06/16/20 12:05 U Benzodiazepines Scrn UNCONFIRMED POSITIVE 06/16/20 12:05 Urine Cocaine Screen NEGATIVE 06/16/20 12:05 U Marijuana (THC) Screen NEGATIVE 06/16/20 12:05 Serum Alcohol < 10 mg/dL (NONE DETECTED) 06/16/20 12:20 06/16/20 06/16/20 06/16/20 12:20 12:20 19:31 Troponin I 0.079 0.098 NT-Pro-B Natriuret Pep [id number] H 06/17/20 06/18/20 09:05 09:05 Troponin I 0.070 NT-Pro-B Natriuret Pep 5230 H Impressions: Chest X-Ray 06/16/20 11:37 IMPRESSION: Marked cardiomegaly new from prior study. No overt failure. Right basilar airspace disease along with right pleural effusion. Chest/Abdomen CTA 06/16/20 12:32 IMPRESSION: Small bilateral pleural effusions with prominent interstitial markings. There is bibasilar atelectasis and lingular atelectasis. No focal consolidation. Findings may represent vascular congestion. No pulmonary emboli. Plan Plan of Treatment: - Outpatient Cardiac Cath to work up new onset CHF Time Spent: Less than 30 Minutes Stroke Is this a Stroke Patient?: No Acute Heart Failure Is this a Heart Failure Patient?: No
== END 2020-06-19 16:42 | disposition home or self-care (01) | DRG 280 ==
LOC: ER 08:03 → EH 15:56 → 4S 18:04
PROVIDERS: ADMIT Internal Medicine; ATTEND Internal Medicine
PROC: B24BZZ4 Ultrasonography of Heart with Aorta, Transesophageal (ICD-10-PCS; principal; 2020-06-17)
DX: I11.0 Hypertensive heart disease with heart failure (principal); I50.21 Acute systolic (congestive) heart failure; I21.4 Non-ST elevation (NSTEMI) myocardial infarction; F43.20 Adjustment disorder, unspecified; R22.0 Localized swelling, mass and lump, head; F32.9 Major depressive disorder, single episode, unspecified; I42.0 Dilated cardiomyopathy; E78.5 Hyperlipidemia, unspecified; I34.0 Nonrheumatic mitral (valve) insufficiency; B96.20 Unspecified Escherichia coli [E. coli] as the cause of diseases classified elsewhere; F17.210 Nicotine dependence, cigarettes, uncomplicated; Z88.0 Allergy status to penicillin; Z79.899 Other long term (current) drug therapy
CPT/HCPCS: 36415; 71045; 71275; 80053; 80061; 80307; 81001; 83036; 83735; 83880; 84443; 84484; 85025; 87086; 87088; 87186; 93005; 93010; 93306; 96374; 96375; 99285; J0171; J0696; J1200; J1650; J1720; J1940; J2060; J3475; J3490; S0028